=== PATIENT | male | born 1945 | race Caucasian/White ===

== ENCOUNTER 2019-01-18 09:49 | Day surgery (SDC) | payer MEDICARE, OTHER, SELFPAY ==
--- NOTE | 2019-01-18 | PATH_ITS ---
[facility] Accession Number: [id number] . 01 Material submitted: . colon - SIGMOID POLYP . 02 Diagnosis: Sigmoid Colon, Polyp, Biopsy: Hyperplastic polyp with features of mucosal prolapse. Negative for dysplasia and malignancy. V 01/19/2019 1355 Local . 02 Electronically signed: . Swetha Mayer MD, Pathologist NPI- [id number] . 01 Gross description: . SIGMOID POLYP: Received in formalin is 1 fragment(s) of cooper, soft tissue measuring 0.1 x 0.1 x 0.1 cm which is entirely submitted and submitted entirely in 1 cassette(s) /[facility] 01/18/2019 2242 Local . 02 Pathologist provided ICD-10: K63.5 . 02 CPT . 301890 Performed at: 01 [facility] [address] [id number] MD Koffi Romo MD Phone: [phone] Performed at: 02 [facility] [place] [address] [place], [place] [id number] MD Swetha Mayer MD Phone: [phone]
[2019-01-18 10:01] VITALS: BP 141/78; PULSE 59; RESP 16; TEMP 35.9; O2SAT 98; BMI 26.0
[2019-01-18] MEDS: SODIUM CHLORIDE 0.9% 1,000 ML 42 ML IV (10:19)
--- NOTE | 2019-01-18 11:26 | PM.HP.1 ---
History of Present Illness History of Present Illness Date Patient Seen: 01/18/19 Time Patient Seen: 11:26 Chief complaint: [id number] Narrative: Screening colonoscopy Patient History Social History household members: spouse Family & Social History Social History: household members spouse Meds Home Medications and Allergies Home Medications Medication Instructions Recorded Confirmed Type Multiple Vitamins 1 tab PO DAILY 01/18/19 01/18/19 History ascorbic acid (vitamin C) [Vitamin 1,000 mg PO Q12H 01/18/19 01/18/19 History C] aspirin [Aspir-81] 81 mg PO DAILY 01/18/19 01/18/19 History omega 4-ixp-yam-fish oil [Fish Oil] 1 cap PO DAILY 01/18/19 01/18/19 History simvastatin 40 mg PO BEDTIME 01/18/19 01/18/19 History Allergies Allergy/AdvReac Type Severity Reaction Status Date / Time No Known Drug Allergies Allergy Verified 01/18/19 10:19 Exam Vital Signs (past 8 hours): - 01/18/19 10:01 Temperature 96.7 F L Pulse Rate 59 L Respiratory Rate 16 Blood Pressure 141/78 H Pulse Oximetry 98 Oxygen Delivery Method Room Air Narrative Exam Narrative: Oropharynx free of lesions Chest clear to auscultation percussion Cardiac exam reveals no S3 or murmur Assessment & Plan Assessment & Plan narrative: Need for screening colonoscopy with history of colon polyps in the distant past.. Risks, benefits, alternatives have been explained.
--- NOTE | 2019-01-18 11:27 | PM.OP.ENDO ---
Operative Date/Time/Diagnoses Date of procedure: 01/18/19 Time of procedure: 11:27 Pre-op diagnosis: See indication and findings Procedure & Clinicians Same procedure as scheduled: Yes Indications: History of colon polyps Surgeon: Millie Biggs Procedure Notes Procedure in detail: After informed consent was obtained the patient was placed in left lateral decubitus position. The video colonoscope was in his rectum slowly advanced to cecum. On slow withdrawal mucosa was carefully examined. The scope was removed. The patient tolerated the procedure well. Preparation was good. Blood loss none complications none Sedation Total sedation time 20 minutes Versed 4 mg fentanyl 100 mg IV titration Findings 1. 3 mm polyp in the sigmoid colon Jumbo biopsy removed completely 2 scattered diverticulosis in the sigmoid colon 3 otherwise negative colonoscopy to the cecum. We will be in touch regarding his pathology results but he will need follow-up colonoscopy in 5 years.
[2019-01-18] MEDS: fentaNYL 250 MCG/5 ML INJ IV (11:35)
[2019-01-18] MEDS: MIDAZOLAM 5 MG/5 ML VIAL IV (11:36)
[2019-01-18 11:55] VITALS: BP 122/82; PULSE 55; TEMP 36.2; O2SAT 96
[2019-01-18 12:00] VITALS: BP 114/76; PULSE 56; RESP 8; O2SAT 95
[2019-01-18 12:05] VITALS: BP 113/74; PULSE 55; RESP 8; O2SAT 94
[2019-01-18 12:10] VITALS: BP 117/74; PULSE 58; RESP 12; TEMP 36.3; O2SAT 97
[2019-01-18 12:25] VITALS: BP 118/78; PULSE 59; TEMP 36.7; O2SAT 98
== END 2019-01-18 12:36 | disposition home or self-care (01) ==
PROVIDERS: PCP Internal Medicine; Visit Provider Internal Medicine Gastroenterology
PROC: 0DJD8ZZ Inspection of Lower Intestinal Tract, Via Natural or Artificial Opening Endoscopic (ICD-10-PCS; CPT 45378; principal; 2019-01-18 11:00)
DX: Z86.010 Personal history of colon polyps (principal); K57.30 Diverticulosis of large intestine without perforation or abscess without bleeding; D12.5 Benign neoplasm of sigmoid colon
CPT/HCPCS: 45380; J2250; J3010

== ENCOUNTER → 2019-12-11 21:20 | Outpatient (ROUT) | payer MEDICARE, OTHER, SELFPAY ==
[2019-12-12 04:38] LABS: Aspartate Aminotransferase 42 IU/L (17-59); BUN Creatinine Ratio 22.4 (6-22); Blood Urea Nitrogen 15 mg/dL (9-20); Calcium 9.4 mg/dL (8.4-10.2); Carbon Dioxide 31 mmol/L (22-32); Chloride 100 mmol/L (98-107); Cholesterol 129 mg/dL (140-199); Estimated Glomerular Filt Rate > 60.0 mL/min (>60); Glucose 87 mg/dL (80-110); HDL Cholesterol 31 mg/dL (40-60); HEMOLYSIS < 15 (0-50); LDL Cholesterol Calculated 67 mg/dL (<100); Potassium 4.4 mmol/L (3.4-5.1); Sodium 137 mmol/L (137-145); Triglycerides 153 mg/dL (35-150)
[2019-12-12 05:06] LABS: Prostate Specific Antigen 1.83 ng/mL (0.10-4.00)
== END ==
PROVIDERS: PCP Internal Medicine; Visit Provider Internal Medicine
DX: E78.2 Mixed hyperlipidemia (principal); I10 Essential (primary) hypertension; N40.0 Benign prostatic hyperplasia without lower urinary tract symptoms
CPT/HCPCS: 80048; 80061; 84153; 84450